=== PATIENT | male | born 1990 | race American Indian/Alaskan Native ===

== ENCOUNTER 2017-10-06 11:26 | Emergency (ER) | payer OTHER, SELFPAY ==
[2017-10-06 11:36] VITALS: BP 122/71
[2017-10-06] MEDS ORDERED: AUGMENTIN 875 MG PO ONE (12:59)
[2017-10-06] MEDS ORDERED: BOOSTRIX IM ONE (12:59)
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
== END 2017-10-06 13:48 | disposition home or self-care (01) ==
LOC: ED 11:26
DX: S60.571A Other superficial bite of hand of right hand, initial encounter (principal); W54.0XXA Bitten by dog, initial encounter; Y93.89 Activity, other specified; Y92.89 Other specified places as the place of occurrence of the external cause; Y99.8 Other external cause status
CPT/HCPCS: 90471; 90715; 99282